=== PATIENT | male | born 1950 | race Hispanic/Latino ===

== ENCOUNTER → 2018-01-08 | Day surgery (SDC) | payer OTHER ==
[~2018-01-08] VITALS: Ht 175.3 cm; Wt 94.3 kg
[~2018-01-08] MED LIST: ASPIRIN EC81 M1 PO; CADUET 5 MG-201 EACH PO; CALCIUM500 M1 PO; CO Q-1075 MG PO; COZAAR50 M1 PO; ELIQUIS2.5 M1 PO; LEVOTHYROXINE88 MCG PO; MULTIVITAMINS1 EAC9 PO; PERCOCET 5-3251 EACH PO; ROBAXIN500 M1 PO; RW; VITAMIN B-121000 MC3 PO; VITAMIN C250 M3 PO; VITAMIN D2000 UNIT PO
--- NOTE | 2018-01-08 11:27 | Operative Report ---
Operative/Inv Procedure Report Surgery Date: 01/08/18 Name of Procedure: Right shoulder arthroscopic limited debridement of the glenohumeral joint Pre-Operative Diagnosis: Right shoulder pain question rotator cuff re-tear Post-Operative Diagnosis: Primary osteoarthritis right glenohumeral joint Estimated Blood Loss: scant Surgeon/Control Clerk [employer]: Pablo AGOSTO,Preet Garcia Anesthesia: general endotracheal tube IV Fluids: See anesthesia record Implants: None Drains: None Specimens: None Complications: None Condition: Stable Operative Indication: Patient's a 67-year-old male was been complaining of increasing right shoulder pain over the past 6 months. No history of a repeat injury. He had been using his walker quite a bit status post bilateral total knee arthroplasty. He is status post right shoulder rotator cuff repair 8 years ago. MRI was inconclusive and decision was made for a diagnostic arthroscopy. Skilled set hands was necessary provided by physician assistant bookkeeper Erick Garcia weighted with limb positioning and camera positioning throughout the case. Operative/Procedure Note Note: Once informed consent was obtained and the correct limb was identified patient brought to operative room placed on table in supine position. After administration of general endotracheal anesthesia patient placed in a beachchair position for right shoulder arthroscopy. Right shoulder was prepped and draped usual sterile fashion. To begin the procedure standard posterior R scopic portals made and the arthroscope was introduced into the glenoid humeral joint. Diagnostic arthroscopy was carried out. There was grade 1-2 changes on the glenoid surface with some roughening of the cartilage surface. There were grade 1-2 changes of the humeral head. There were no full-thickness defects. Labrum was intact. Subscapularis tendon was intact. The articular surface of the supraspinatus was intact. There are no loose bodies. An anterior portal was made lateral to the coracoid process. A probe was introduced. The labrum was probed and intact. The supraspinous attachment was probed and completely intact. The shaver was introduced and a 4.2 great white shaver was used to do a limited debridement of inflamed synovial tissue. At this point the ER scope was then taken to the subacromial space and a lateral portal was made. A shaving device was brought into the subacromial space. Limited debridement of the bursa was performed without complication. The bursal surface of the supraspinous tendon was inspected and down to be completely intact. There is no loosening of anchors anywhere in the shoulder. A probe was placed over the supraspinous and found to have no defects in the tendon. Once the bursectomy was completed the entrance removed and the shoulder was irrigated. The patient was awakened taken recovery in stable condition.
== END ==
LOC: STS 12-04 07:00
DX: M19.011 Primary osteoarthritis, right shoulder (principal); I10 Essential (primary) hypertension; E03.9 Hypothyroidism, unspecified
CPT/HCPCS: C9290; J0171; J0690; J3490